=== PATIENT | female | born 1975 | race Caucasian/White ===

== ENCOUNTER 2019-08-16 07:18 | Day surgery (SDC) | payer MEDICAID ==
[~2019-08-16] VITALS: Ht 167.6 cm; Wt 97.7 kg
[2019-08-16 07:41] LABS: BASOPHILS 0.3 % (0-2); EOSINOPHILS 2.3 % (0-7); HEMATOCRIT 43.5 % (36.0-48.0); HEMOGLOBIN 14.8 g/dL (12-16); IMMATURE GRANULOCYTES 0.2 % (0-5); MCH 30.5 pg (26.0-34.0); MCV 89.7 fL (80.0-100.0); MEAN PLATELET VOLUME 9.8 fL (7.4-10.4); MONOCYTES 8.3 % (2-11); NEUTROPHILS 52.9 % (40-80); PLATELET COUNT 232 10x3/uL (130-400); RBC 4.85 10x6/uL (4.00-5.40); RDW 12.8 % (11.5-14.5); WBC 5.8 10x3/uL (4.8-10.8)
[2019-08-16 07:59] LABS: ANION GAP 10.5 mmol/L (8-16); CALCIUM 8.9 mg/dL (8.5-10.1); CARBON DIOXIDE 26.5 mmol/L (21.0-32.0); CREATININE - SERUM 0.9 mg/dL (0.6-1.3)
[2019-08-16] MEDS ORDERED: IBUPROFEN800 MG (08:41)
[2019-08-16] MEDS ORDERED: BUPROPION XL300 MG PO (08:41)
[2019-08-16 08:57] VITALS: BP 126/81; Ht 167.6 cm; Wt 97.7 kg
== END 2019-08-16 11:35 | disposition home or self-care (01) ==
LOC: D.OPS 07:18
PROVIDERS: Anesthesiology; ATTEND Surgery
DX: R13.10 Dysphagia, unspecified (principal); K44.9 Diaphragmatic hernia without obstruction or gangrene; Z98.84 Bariatric surgery status; K21.9 Gastro-esophageal reflux disease without esophagitis

== ENCOUNTER → 2019-08-21 09:50 | Outpatient (CLI) | payer MEDICAID ==
[2019-08-16 08:57] VITALS: BMI 34.7
[~2019-08-21 09:50] MED LIST: BUPROPION XL300 MG PO; IBUPROFEN800 MG
== END | disposition home or self-care (01) ==
LOC: D.RAD 08-17 09:00
PROVIDERS: ATTEND Surgery
DX: R13.10 Dysphagia, unspecified (principal)

== ENCOUNTER 2019-09-04 05:49 | Day surgery (SDC) | payer MEDICAID ==
[~2019-09-04] VITALS: Ht 167.6 cm; Wt 97.5 kg
[~2019-09-04 05:49] MED LIST changes: +MELATONIN10 M1 PO; +PEPCID AC20 MG PO; +TRAZODONE HCL150 MG PO
[2019-09-04 06:06] LABS: HEMATOCRIT 40.3 % (36.0-48.0); HEMOGLOBIN 13.3 g/dL (12-16); MCH 30.1 pg (26.0-34.0); MCV 91.2 fL (80.0-100.0); MEAN PLATELET VOLUME 9.6 fL (7.4-10.4); RBC 4.42 10x6/uL (4.00-5.40); RDW 12.7 % (11.5-14.5); WBC 6.3 10x3/uL (4.8-10.8)
[2019-09-04 06:29] VITALS: BP 103/70; Ht 167.6 cm; Wt 97.5 kg
[2019-09-04] MEDS ORDERED: HYDROCODON-ACE1 EAC7 PO (09:08)
== END 2019-09-04 10:45 | disposition home or self-care (01) ==
LOC: D.OPS 05:49 → D.PAN 08:00 → D.OPS 08:00
PROVIDERS: Anesthesiology; ATTEND Surgery
DX: R13.10 Dysphagia, unspecified (principal); K21.9 Gastro-esophageal reflux disease without esophagitis; Z98.84 Bariatric surgery status